=== PATIENT | female | born 1965 | race Caucasian/White ===

== ENCOUNTER 2017-02-04 13:38 | Emergency (ER) | payer OTHER, MEDICAID ==
[2017-02-04 14:14] LABS: Hematocrit 39.7 % (37.0-47.0); Hemoglobin 13.4 gm/dL (12.5-16.0); Mean Cell Volume 83.2 fl (78-100); Mean Corpuscular Hemoglobin 28.1 pg (27-31); Mean Corpuscular Hgb Conc 33.8 g/dl (32-36); Mean Platelet Volume 9.7 fl (6.0-9.5); Neutrophil # 4.5 K/mm3 (1.3-6.0); Neutrophil % 67.4 % (42-75.0); Platelet Count 296 K/mm3 (150-450); Red Blood Count 4.77 M/mm3 (4.2-5.4); Red Cell Distribution Width 12.3 % (11.5-14.0); White Blood Count 6.7 K/mm3 (4.0-10.5)
--- OUTSIDE RECORDS SUMMARY | 2017-02-04 14:18 | XMS REPORT | Continuity of Care Document ---
:1965 Author Organization [facility] ([facility]) Address [address] [place] [address] Phone [phone] Care Team Providers Name Role Phone Sukhi Shields Primary Care Provider [phone] Source Comments This disclosure is being made pursuant to the Care Everywhere program, applicable federal and state laws, and may not contain all informaitonavailable regarding this patient.[facility] ([facility]) Active Allergies and Adverse Reactions Allergen Noted Date Severity Reactions Comments Adhesive 10/16/2015 OTHER Amitriptyline 10/16/2015 OTHER Duloxetine 10/16/2015 OTHER Latex 10/16/2015 OTHER Meperidine 10/16/2015 OTHER Nortriptyline 10/16/2015 OTHER Current Medications Prescription Sig. Disp. Refills Start Date End Date Status clonazePAM 2 mg tablet Take 2 mg by Active mouth 3 times daily. QUEtiapine 100 mg Take 100 mg by Active tablet mouth Every morning. QUEtiapine 300 mg Take 600 mg by Active tablet mouth at bedtime. zolpiDEM 10 mg tablet Take by mouth at Active bedtime. atorvastatin 20 mg Take 20 mg by Active tablet mouth at bedtime. pantoprazole 40 mg EC Take 40 mg by Active tablet mouth daily. tiZANidine 6 mg capsule Take 6 mg by Active mouth 3 times daily. nitrofurantoin Take 100 mg by Active (MACROBID) 100 mg mouth 2 times capsule daily with meals as needed. ondansetron 4 mg Take 4 mg by Active disintegrating tablet mouth every 6 hours as needed. fentanyl 75 mcg/hr Apply 75 mcg on Active patch the skin every 72 hours. gabapentin 800 mg Take 800 mg by Active tablet mouth 3 times daily. biotin PO Take 1 capsule Active by mouth daily For hair . EVENING PRIMROSE OIL Take 1 capsule Active (EVENING PRIMROSE PO) by mouth daily For hot flashes . HYDROmorphone 2 mg Take 1-2 tablets 120 tablet 0 10/26/2015 Active tablet (2-4 mg total) by mouth every 4 hours as needed. loperamide 2 mg capsule Take 1 capsule 60 capsule 11 10/26/2015 Active (2 mg total) by mouth every 6 hours as needed for Diarrhea. potassium chloride 10 Take 2 tablets 180 tablet 0 11/12/2015 Active mEq XR tablet (20 mEq total) by mouth 3 times daily. Active Problems Problem Noted Date Acute kidney injury 10/25/2015 Hypoalbuminemia 10/25/2015 Low BUN 10/25/2015 High anion gap metabolic acidosis 10/25/2015 Acute respiratory failure following trauma and surgery 10/17/2015 Overview: 10/17/15: VATS drainage of her empyema and decortication today. She is now febrile up to 40.0, tachycardic with HRs up to 150, tachypneic and in moderate respiratory distress. Concern for possible pneumonia. Currently on Vancomycin and Zosyn. O2 to keep sats > 92%. Monitoring abgs. Empyema 10/16/2015 Overview: 10/17/15: VATS drainage of her empyema and decortication today. Continue to monitor cultures, currently on Vancomycin and Zosyn. Smoking 10/16/2015 Chronic pain 10/16/2015 Anxiety 10/16/2015 Depression 10/16/2015 GERD (gastroesophageal reflux disease) 10/16/2015 Hyperlipidemia 10/16/2015 Fibromyalgia 10/16/2015 Dental caries 10/16/2015 Pneumonia 10/16/2015 Family history of cancer 10/16/2015 Overview: Mother - breast and ovary Father - melanoma Lung nodule 10/16/2015 Overview: Noted on outside CT 10/15/15 in setting of pneumonia. Follow-up recommended to ensure resolution. Resolved Problems Problem Noted Date Resolved Date Sepsis 10/17/2015 10/23/2015 Overview: 10/17/15: VATS drainage of her empyema and decortication today. Currently febrile up to 40.0. Currently on Vancomycin and Zosyn, will follow cultures closely. May require Levophed to keep MAPs > 65. Social History Tobacco Use Types Packs/Day Years Used Date Former Smoker Cigarettes 6 Quit: 09/06/2015 Smokeless Tobacco: Never Used Last Filed Vital Signs Vital Sign Reading Time Taken Blood Pressure 155/78 12/03/2015 2:15 PM CDT Pulse 101 12/03/2015 2:15 PM CDT Temperature 36.7 C (98.1 F) 12/03/2015 2:15 PM CDT Respiratory Rate 16 10/26/2015 8:11 AM [employer] Height 1.676 m (5' 5.98") 12/03/2015 2:15 PM CDT Weight 75.5 kg (166 lb 7.2 oz) 12/03/2015 2:15 PM CDT Body Mass Index 26.88 12/03/2015 2:15 PM CDT Oxygen Saturation 96% 12/03/2015 2:15 PM CDT Plan of Care Health Maintenance Due Date Last Done Comments HCV Screening 1965 Hepatitis B Vaccine (1 of 3 - Primary Series) 1965 Tdap Vaccine 12/13/1975 Lipid Disorder Screening 1982 MMR Vaccine 1982 Td Vaccine 1982 Cervical Cancer Screening 1994 Mammogram 2004 Colonoscopy 2014 Influenza Vaccine: Seasonal (Season Ended) 2017 Results from Last 3 Months Not on file
--- OUTSIDE RECORDS SUMMARY | 2017-02-04 14:18 | XMS REPORT | Continuity of Care Document ---
:1965 Author Organization [facility] [place] [address] Care Team Providers Name Role Phone Provider, Not In System Primary Care Provider Unavailable Source Comments This disclosure is being made pursuant to the [email or web address] program and maynot contain all information available regarding this patient.[facility] Active Allergies and Adverse Reactions Not on File Current Medications Be aware that medications may not be up to date as of this document. Alwaysverify current medications with the patient. Not on file Active Problems Not on file Social History Tobacco Use Types Packs/Day Years Used Date Current Every Day Smoker Last Filed Vital Signs Vital Sign Reading Time Taken Blood Pressure 118/72 05/24/2012 2:50 PM CDT Pulse 68 05/24/2012 2:50 PM CDT Temperature - - Respiratory Rate 20 12/16/2011 7:25 AM CDT Height 1.676 m (5' 6") 05/24/2012 2:50 PM CDT Weight 72.576 kg (160 lb) 05/24/2012 2:50 PM CDT Body Mass Index 25.84 05/24/2012 2:50 PM CDT Oxygen Saturation - - Plan of Care Health Maintenance Due Date Last Done Comments Tetanus/Pertussis (1 - Tdap) 12/13/1983 Pap Smear 1985 Mammogram 2014 Well Adult Visit 2014 Influenza Immunization (#1) 2016 Colonoscopy 08/23/2016 08/23/2006 Results from Last 3 Months Not on file
--- OUTSIDE RECORDS SUMMARY | 2017-02-04 14:18 | XMS REPORT | Summary of Care ---
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 This result is based off: Weight Measured September 16, 2016 08:31:00 [employer]EL[employer] by Katina Corbin LPN Problem List Condition Effective Dates Status Health Status Informant Anorexia(Confirmed) Active Anxiety(Confirmed) Active Bipolar(Confirmed) Active Fibromyalgia(Confirmed) Active Hypercholesterolemia(Confirmed) Active Lumbar radiculopathy(Confirmed) Active Allergies, Adverse Reactions, Alerts Substance Reaction Severity Status Cymbalta Unknown Active Demerol HCl Unknown Active Depakote rash Active Dilaudid Unknown Active Latex rash Active lithium Unknown Active Medications amitriptyline 50 mg oral tablet 1 tab(s), Oral, HS, # 30 tab(s), 0 Refill(s), Start Date: 07/23/16 13:04:00 [employer] Start Date: 07/23/16 Status: Orderedatorvastatin 20 mg oral tablet 1 tab(s), Oral, Daily, 0 Refill(s), Start Date: 07/23/16 13:08:00 [employer]EL[employer] Start Date: 07/23/16 Status: OrderedclonazePAM 2 mg oral tablet 1 tab(s), Oral, TID, 0 Refill(s), Start Date: 07/23/16 13:07:00 [employer]ELOPER Start Date: 07/23/16 Status: OrderedfentaNYL 75 mcg/hr transdermal film, extended release 1 patch(es), Topical, q3day, 0 Refill(s), Start Date: 07/23/16 13:03:00 [employer]EL[employer] Start Date: 07/23/16 Status: Orderedgabapentin 400 mg oral capsule 1 cap(s), Oral, BID, 0 Refill(s), Start Date: 07/23/16 13:06:00 [employer]ELOPER Start Date: 07/23/16 Status: OrderedhydrOXYzine hydrochloride 25 mg oral tablet 1 tab(s), Oral, QID, PRN for anxiety, 0 Refill(s), Start Date: 07/23/16 13:14: 00 [employer]EL[employer] Start Date: 07/23/16 Status: Orderedloperamide 2 mg oral capsule 1 cap(s), Oral, q4hr, PRN for loose stool, # 60 cap(s), 0 Refill(s), Start Date : 07/23/16 13:06:00 [employer]ELOPER Start Date: 07/23/16 Status: OrderedoxyCODONE-acetaminophen 5mg-325mg oral tablet 1 tab(s), Oral, q4hr, PRN for pain, 0 Refill(s), Start Date: 07/23/16 13:04:00 [employer]EL[employer] Start Date: 07/23/16 Status: OrderedProtonix 40 mg oral delayed release tablet 1 tab(s), Oral, Daily, 0 Refill(s), Start Date: 07/23/16 13:07:00 [employer]ELOPER Start Date: 07/23/16 Status: OrderedSEROquel 200 mg oral tablet 1 tab(s), Oral, BID, 0 Refill(s), Start Date: 07/23/16 13:07:00 [employer]ELOPER Start Date: 07/23/16 Status: OrderedtiZANidine 6 mg oral capsule 1 cap(s), Oral, TID, # 90 cap(s), 0 Refill(s), Start Date: 07/23/16 13:04:00 [employer]ELOPER Start Date: 07/23/16 Status: Orderedtriamcinolone 0.1% mucous membrane paste 1 oliver, Oral, TID, # 5 gm, 0 Refill(s), Start Date: 07/23/16 13:04:00 [employer]EL[employer] Start Date: 07/23/16 Status: Orderedzolpidem 10 mg oral tablet 1 tab(s), Oral, HS, PRN for sleep, 0 Refill(s), Start Date: 07/23/16 13:05:00 [employer]ELOPER Start Date: 07/23/16 Status: Ordered Results No data available for this section Immunizations No data available for this section Procedures Procedure Date Related Diagnosis Body Site Endometrial ablation 2011 Appendectomy Cholecystectomy Extraction of wisdom tooth Procedure on phalanx of foot Social History No data available for this section Assessment and Plan No data available for this section
[2017-02-04] MEDS ORDERED: OXYBUTYNIN CHLORIDE 5 MG TABLET PO PRN (14:21)
[2017-02-04 14:28] LABS: Albumin * 4.1 gm/dl (3.4-5.0); Anion Gap 11.3 mmol/L (6.8-13.8); BUN/Creatinine Ratio 7.4 (9.0-21.6); Bilirubin, Total 0.4 mg/dL (0.0-1.1); Ca. Corrected For Albumin 8.9 mg/dL (8.4-10.2); Calcium * 9.3 mg/dL (7.9-10.9); Carbon Dioxide 29.5 mmol/L (24-32.6); Potassium 3.8 mmol/L (3.4-4.6); Total Protein 7.7 gm/dL (6.2-8.2)
[2017-02-04] MEDS ORDERED: ONDANSETRON 4 MG TAB.RAPDIS ONE ×2 (15:55→15:58)
[2017-02-04] MEDS ORDERED: ONDANSETRON 4 MG TAB.RAPDIS PO ONE (15:57)
[2017-02-04 16:53] LABS: Urine Bilirubin Negative (NEGATIVE); Urine Blood Negative /ul (NEGATIVE); Urine Ketone Negative (NEGATIVE); Urine Nitrite Negative (NEGATIVE); Urine Protein Negative (NEGATIVE); Urine Urobilinogen Normal (NORMAL)
[2017-02-04 17:11] LABS: Urine Appearance Clear; Urine Bacteria TRACE; Urine Color Yellow; Urine RBC 0-5 /hpf (0-5); Urine WBC 0-5 /hpf (0-5)
--- NOTE | 2017-02-04 17:25 | ERNOTE ---
ER Female HPI Date of Service: 02/04/17 Stated Complaint: URINARY PROBLEM Time Seen by Provider: 02/04/17 14:14 Source: patient Exam Limitations: no limitations Immunizations: IMMUNIZATION HX Immunizations Up to Date Yes History of Influenza Vaccine No Hx Pneumococcal Vaccination No Allergies/Adverse Reactions: Allergies meperidine HCl [From Demerol] Allergy (Severe, Verified 02/04/17 13:56) stops breathing ketorolac [From Toradol] Adverse Reaction (Intermediate, Verified 02/04/17 13:56 ) Shortness of Breath adhesive Adverse Reaction (Mild, Verified 02/04/17 13:56) bandaids cause skin irritation amitriptyline Adverse Reaction (Mild, Verified 02/04/17 13:56) cant urinate duloxetine HCl [From Cymbalta] Adverse Reaction (Mild, Verified 02/04/17 13:56) cant urinate latex Adverse Reaction (Mild, Verified 02/04/17 13:56) skin irritation nortriptyline Adverse Reaction (Mild, Verified 02/04/17 13:56) cant urinate pregabalin [From Lyrica] Adverse Reaction (Mild, Verified 02/04/17 13:56) SWELLING, PAIN IN LEGS Home Medications: HOME MEDICATIONS Atorvastatin Calcium [Lipitor] 20 mg PO DAILY 06/07/15 [Last Taken Unknown] Clonazepam 2 mg PO BID 06/07/15 [Last Taken Unknown] Ondansetron [Zofran Odt] 4 mg PO Q6H PRN 06/07/15 [Last Taken Unknown] Pantoprazole Sodium [Protonix] 40 mg PO DAILY 06/07/15 [Last Taken Unknown] QUEtiapine FUMARATE [Seroquel] 100 mg PO DAILY 06/07/15 [Last Taken Unknown] Zolpidem Tartrate [Ambien] 10 mg PO HS 06/07/15 [Last Taken Unknown] tiZANidine HCL [Zanaflex] 6 mg PO TID 06/07/15 [Last Taken Unknown] fentaNYL [Duragesic] 50 mcg TD Q72H 10/11/15 [Last Taken 10/09/15] Gabapentin [Neurontin] 400 mg PO BID 01/17/16 [Last Taken Unknown] QUEtiapine FUMARATE [Seroquel] 300 mg PO HS 01/17/16 [Last Taken Unknown] oxyCODONE HCL/ACETAMINOPHEN [Percocet 5 MG/325 MG] 1 tab PO Q6H PRN 01/17/16 [ Last Taken Unknown] - History of Present Illness Narrative: Patient presents to the ED for feeling like she cannot urinate. She states she has't been drinking much last day or so and feels like she cannot urinate. no fever. No abdominal pain, no vomiting. No flank pain. She relates she has had trouble like this before but it has been a while. Does not see a urologist. Has not seen anyone else for this. Timing: Present: constant Quality: Present: other - she relates occasional abdominal pains but no acute abdominal pain Activities at Onset: Present: none Prior Abdominal Problems: Absent: recent trauma Modifying Factors - (Improves): Present: other - nothing Modifying Factors - (Worsens): Present: other - nothing Associated Symptoms: Present: denies symptoms. Absent: fever/chills Prior Treatment: Absent: recently hospitalized, currently on antibiotics Review of Systems - Review of Systems Constitutional: Absent: fever Respiratory: Absent: shortness of breath Cardiology: Absent: chest pain Gastrointestinal/Abdominal: Present: See HPI Genitourinary: Present: See HPI Neurological: Absent: weakness - Patient's Past Medical History Patient History - Medical: Anxiety, Bipolar, Fibromyalgia Patient History - Cardiac/Respiratory: No pertinent hx, Pneumonia Patient History - Cancer: No Hx of Cancer Patient History - Surgical Procedures: Appendectomy, Cholecystectomy, Colonoscopy, EGD Patient History - Other: None LMP (females 10-50): Menopausal - Family History Father Family History - Medical: Other Family History - Cardiac/Respiratory: Myocardial Infarction Mother Family History - Medical: Other Family History - Cardiac/Respiratory: No pertinent hx Children Family History - Medical: No pertinent hx Family History - Cardiac/Respiratory: No pertinent hx Grandfather-Paternal Family History - Medical: No pertinent hx Family History - Cardiac/Respiratory: No pertinent hx Grandmother-Maternal Family History - Cardiac/Respiratory: CVA/Stroke - Social History Living Situations: home Abuse History: No History of abuse Psych History: Hx of Anxiety, Hx of Bipolar Disorder Smoking Status: Current every day smoker Alcohol Use: none Drug Use: other - Immunizations Immunizations Up to Date: Yes Hx Pneumococcal Vaccination: No History of Influenza Vaccine: No Physical Exam - Physical Exam General Appearance: Present: alert, no apparent distress Eye Exam: Normal inspection: bilateral, PERRL: bilateral Ears, Nose, Throat: Present: normal ENT inspection. Absent: dry mucous membranes Neck: Present: normal inspection Respiratory: Present: no respiratory distress, normal breath sounds, lungs clear Cardiovascular/Chest: Present: regular rate, rhythm, normal peripheral pulses Gastrointestinal/Abdominal: Present: normal bowel sounds, nontender, nondistended, soft Back Exam: Absent: CVA tenderness (R), CVA tenderness (L) Extremity Exam: Present: normal inspection Neurological Exam: Present: alert, no motor/sensory deficits Skin Exam: Absent: skin rash ED Progress - Results and Orders Patient's Lab Results:: I have reviewed the patient's lab results. - Vital Signs Patient's Vital Signs:: I have reviewed the patient's vital signs. Vital Signs: Vital Signs 02/04/17 13:50 Temperature 36.9 C Pulse Rate 97 Respiratory 16 Rate Blood Pressure 150/76 O2 Sat by Pulse 97 Oximetry - Progress/Reassessment Chief Complaint: Urinary Tract Problems Progress Note-Subjective: 02/04/17 17:23 No urinary retention. Bladder scan 34ml. patient urinated without difficulty here. No suggestion of UTI or urinary retention. She feels much improved. Wishing to go home. I diuscssed warning signs and reasons to return as well as the need for close f/u. Departure Clinical Impression: Urine troubles - Departure Disposition: Home self-care Condition: Stable Additional Instructions: Push liquids. See your doctor tomorrow for a re-check. Return for fever, difficulty urinating, abdominal pain or if your condition worsens of changes in any way. Referrals: Sukhi Shields MD [Primary Care Provider] -
[2017-02-04 17:32] VITALS: BP 135/74
== END 2017-02-04 17:20 | disposition home or self-care (01) ==
LOC: ER 13:38
DX: R33.9 Retention of urine, unspecified (principal); F17.210 Nicotine dependence, cigarettes, uncomplicated

== ENCOUNTER 2017-05-28 12:09 | Day surgery (SDC) | payer OTHER, MEDICAID ==
[~2017-05-28 12:09] MED LIST: ACETAMINOPHEN WITH CODEINE 1 EACH TABLET PO PRN; ONDANSETRON HCL/PF 2 MG/ML VIAL IV PRN; OXYBUTYNIN CHLORIDE 5 MG TABLET PO PRN; RINGER'S SOLUTION,LACTATED 1,000 ML IV PRN; oxyCODONE HCL/ACETAMINOPHEN 1 TAB TABLET PO PRN
[2017-05-28] MEDS ORDERED: RINGER'S SOLUTION,LACTATED 1,000 ML IV ONE ×2 (12:55→13:25)
[2017-05-28] MEDS: ceFAZolin SODIUM 1 GM in DEXTROSE 5 % IN WATER 100 ML IV PRN ×4 (13:40→13:56)
[2017-05-28 15:31] VITALS: BP 131/65
== END 2017-05-28 12:10 | disposition home or self-care (01) ==
LOC: AMB 12:09
PROVIDERS: ATTEND Urology
PROC: 0T7D8ZZ Dilation of Urethra, Via Natural or Artificial Opening Endoscopic (ICD-10-PCS; principal; 2017-05-28 13:35)
DX: N35.9 Urethral stricture, unspecified (principal); R30.0 Dysuria; E78.00 Pure hypercholesterolemia, unspecified; M79.7 Fibromyalgia; F17.200 Nicotine dependence, unspecified, uncomplicated; Z68.1 Body mass index [BMI] 19.9 or less, adult